=== PATIENT | male | born 1945 | race Caucasian/White ===

== ENCOUNTER → 2016-04-26 | Outpatient (CLI) | payer OTHER ==
[~2016-04-26] MED LIST: AMLO-114 PO; AMLO5TAB2 PO; ATOR-54 PO; CLON0.1T12 PO; LISI10TA PO; PRLSR20 PO; RXC5 PO; [UNRECOGNIZED DRUG - CODE] INJ
== END | disposition home or self-care (01) ==
LOC: C.LABMFLN 10:34
PROVIDERS: ATTEND Internal Medicine Endocrinology, Diabetes & Metabolism
DX: E31.21 Multiple endocrine neoplasia [MEN] type I (principal); Z86.39 Personal history of other endocrine, nutritional and metabolic disease; D35.00 Benign neoplasm of unspecified adrenal gland; E55.9 Vitamin D deficiency, unspecified

== ENCOUNTER → 2016-04-27 | Outpatient (CLI) | payer OTHER ==
[~2016-04-27] MED LIST changes: +GADAVIST IV PRN
--- NOTE | 2016-04-27 12:33 | DIAGNOSTIC IMAGING REPORT ---
MRI BRAIN COMBO FOR PITUITARY HISTORY: Multiple endocrine neoplasia type I. TECHNIQUE: Multiplanar multisequence MRI of the brain and pituitary fossa were performed both before and after the intravenous administration of contrast. COMPARISON STUDY: None. FINDINGS: The pituitary gland is normal in size and shape. There is normal posterior pituitary bright spot. There are no suprasellar masses. The pituitary stalk is normal in course and caliber. The pituitary gland enhances normally. Patchy periventricular white matter T2 hyperintensity is nonspecific but favor moderate microvascular ischemic change. There are mild atrophic changes within the brain. Hypoplastic distal vertebral arteries and basilar artery. However, the major vascular flow-voids at the skull base are well-maintained. Mild mucosal thickening within the paranasal sinuses. The mastoid air cells are clear. No abnormal enhancement. There is no mass, hematoma, midline shift, acute infarct. IMPRESSION: 1. No acute intracranial abnormality. 2. Normal pituitary gland. 3. Periventricular white matter T2 hyperintense foci are nonspecific but favor moderate microvascular ischemic change given the patient's age. Electronically signed by: Vasile Davila M.D. 04/27/2016 12:32 PM Dictated Date/Time: 04/27/2016 12:14 PM
== END | disposition home or self-care (01) ==
LOC: C.MRI 09:44
PROVIDERS: ATTEND Internal Medicine Endocrinology, Diabetes & Metabolism
DX: D35.00 Benign neoplasm of unspecified adrenal gland (principal); E31.21 Multiple endocrine neoplasia [MEN] type I; E55.9 Vitamin D deficiency, unspecified; Z86.39 Personal history of other endocrine, nutritional and metabolic disease

== ENCOUNTER 2016-05-08 05:58 | Inpatient (IN) | payer OTHER ==
[2016-04-18 11:50] VITALS: BMI 21.0
--- NOTE | 2016-04-18 12:29 | PAT Medication Instructions ---
Service Date Apr 18, 2016. Current Home Medication List Clonidine Hcl (Catapres), 1 TAB PO noon Lisinopril (Prinivil), 10 MG PO noon Octreotide Acetate (Sandostatin [place]), 0.5 ML INJ 3-4XWEEK Omeprazole (Prilosec), 40 MG PO NOON Medication Instructions For Your Scheduled Surgery - Check with surgeon/prescribing physician for instructions: Octreotide Acetate (Sandostatin [place]), 0.5 ML INJ 3-4XDAYS - Hold the following medications the morning of surgery: Lisinopril (Prinivil), 10 MG PO noon - Take the following medications the morning of surgery with a sip of water: Omeprazole (Prilosec), 40 MG PO NOON Clonidine Hcl (Catapres), 1 TAB PO noon If you have any questions please call us at [phone] (Criss Chavez PA-C) or [phone] or [phone]
[2016-04-18 13:29] LABS: BASO % 0.8 %; BASO ABS # 0.06 K/uL (0-0.2); COMPLETE YES; EOS % 2.2 %; HEMATOCRIT 35.2 % (42-52); IG% 0.1 %; LYMPH % 21.4 %; LYMPH ABS # 1.66 K/uL (1.2-3.4); MEAN CELL VOLUME 96.7 fL (80-100); MEAN CORPUSCULAR HEMOGLOBIN 33.2 pg (25-34); MEAN CORPUSCULAR HGB CONC 34.4 g/dl (32-36); MEAN PLATELET VOLUME 8.9 fL (7.4-10.4); MONO % 8.8 %; NEUT % 66.7 %; PLATELET COUNT 301 K/uL (130-400); RED BLOOD COUNT 3.64 M/uL (4.7-6.1); WHITE BLOOD COUNT 7.75 K/uL (4.8-10.8)
[2016-04-18 14:03] LABS: BUN/CREATININE RATIO 18.5 (10-20); CALCIUM 9.1 mg/dl (8.5-10.1); CREATININE 1.1 mg/dl (0.60-1.40)
--- NOTE | 2016-05-04 07:50 | HISTORY & PHYSICAL EXAMINATION ---
DATE OF ADMISSION: 05/08/2016 HISTORY OF PRESENT ILLNESS: The patient presents to the office with a complaint of left arm pain involving the deltoid and the biceps. He also reports inability to lift his left arm. He states this started about 4-5 months ago. He believes in October of 2015, he was working on a car overhead using a wrench and felt something pop and pull. He was evaluated by Dr. Og for his shoulder, ordered EMGs which revealed carpal tunnel syndrome only. He then was referred for MRI of his cervical spine and presented to our office. He has a difficult time dressing himself due to inability to lift his left arm. Denies numbness or tingling to the hand. Denies bowel or bladder dysfunction. Denies change in balance or gait. MEDICAL HISTORY: Significant for arthritis, BPH, prostate cancer 2016, hypertension, kidney disease, peripheral ulcer disease, renal disease. SURGICAL HISTORY: Significant for prostate. MEDICATIONS: Not listed. ALLERGIES: No known drug allergies. SOCIAL HISTORY: He is self-employed as a garden machinery mechanic. He is . Alcohol use is occasional. Tobacco use is 3 packs of cigarettes a day. Drug use is none. FAMILY HISTORY: Significant for arthritis, cancer, hypertension, and thyroid disease. REVIEW OF SYSTEMS: Significant for chills, fatigue, weakness, coughing, difficulty walking, nausea, urinary incontinence, neck and upper extremity pain. PHYSICAL EXAMINATION: GENERAL: He is 5 feet 3, 125 pounds. HEENT: Speech appropriate. CARDIOPULMONARY: No gross abnormalities. ABDOMEN: Soft, nontender. GENITOURINARY: Deferred. NEUROLOGIC: Cranial nerves II-XII grossly intact. MUSCULOSKELETAL: There is atrophy involving the left biceps and deltoid. The patient ambulates slowly around the room. He has great range of motion of the left shoulder. No impingement signs left shoulder. Strength is 1/5 left biceps and deltoid. He has weakness of the left hand but full strength in the right. Negative Cadena's. ASSESSMENT: Anterolisthesis of C4-C5, bilateral neural foraminal stenosis C4-C5, C5-C6, and C6-C7. There is also alteration of the contour of the cord at the C4-C5 level. Assessment is multilevel cervical spinal stenosis, left upper extremity weakness. PLAN: At this point in time, we have reviewed surgical intervention which would require anterior cervical discectomy and fusion of C6-C7 and C5 corpectomy. Risks, benefits, pros, cons, and alternatives were outlined in detail. The patient would like to proceed with the above-mentioned surgical planning.
[~2016-05-08] VITALS: Ht 160 cm; Wt 55.1 kg
[2016-05-08] VITALS (18 sets, daily range): BP systolic 144–172; BP diastolic 66–87; PULSE 69–79; TEMP 36.3–36.6; O2SAT 93–100; Ht 160 cm; Wt 55.1 kg
[~2016-05-08 05:58] MED LIST changes: -AMLO-114 PO; -GADAVIST IV PRN; -RXC5 PO
[2016-05-08] MEDS ORDERED: CEFAZOLIN 1000MG/55 ML D5W IV SCH (06:00)
[2016-05-08] MEDS ORDERED: LACTATED RINGER'S 1000ML 1,000 ML IV SCH (06:00)
[2016-05-08] MEDS ORDERED: MIDAZOLAM HCL 1 MG/ML 2ML VIAL ONE (06:36)
[2016-05-08] MEDS ORDERED: FENTANYL CITRATE INJ 50 MCG/1 ML 2 ML VIAL ONE ×5 (06:36→09:24)
[2016-05-08] MEDS ORDERED: AMLO-114 PO (07:00)
--- NOTE | 2016-05-08 07:29 | History & Physical Bridge Note ---
H&P Re-Evaluation Bridge Note: I have examined the patient, reviewed the History & Physical and in the interval since the performance of the History & Physical I have noted the following changes of clinical significance: No changes noted
[2016-05-08] MEDS ORDERED: HYDROmorphone INJ 2 MG/ML SYR/VIAL ONE (08:05)
[2016-05-08] MEDS ORDERED: PROPOFOL IV EMULSION 10 MG/ML 20 ML VIAL IV ONE (08:33)
[2016-05-08] MEDS ORDERED: DEXAMETHASONE SOD INJ 4 MG/ML VIAL ONE (08:33)
[2016-05-08] MEDS ORDERED: GLYCOPYRROLATE INJ 0.2 MG/ML VIAL ONE (08:33)
[2016-05-08] MEDS ORDERED: ESMOLOL HCL 10 MG/ML 10 ML VIAL ONE (08:33)
[2016-05-08] MEDS ORDERED: PHENYLEPHRINE 100MCG/ML 5ML SYR ONE (08:33)
[2016-05-08] MEDS ORDERED: ROCURONIUM BROMIDE 10 MG/ML 5 ML VIAL ONE (08:33)
[2016-05-08] MEDS ORDERED: ALBUTEROL HFA INHALER 8.5 GM INH ONE (08:33)
[2016-05-08] MEDS ORDERED: LIDOCAINE HCL 2% 2 ML VIAL (20MG/ML) ONE (08:33)
[2016-05-08] MEDS ORDERED: ONDANSETRON INJ 2 MG/ML 2 ML VIAL IV PRN ×2 (09:15→09:45)
[2016-05-08] MEDS ORDERED: HYDROmorphone INJ 2 MG/ML SYR/VIAL IV PRN (09:15)
[2016-05-08] MEDS ORDERED: LABETALOL HCL IV 5 MG/ML 20ML IV PRN (09:15)
[2016-05-08] MEDS ORDERED: ATROPINE SULFATE 0.1 MG/ML 5ML SYR IV PRN (09:15)
[2016-05-08] MEDS ORDERED: FLOSEAL HEMOSTATIC MATRIX 10ML TOP ONE (09:21)
[2016-05-08] MEDS ORDERED: BACITRACIN 50,000 UNITS IR ONE (09:28)
--- NOTE | 2016-05-08 09:35 | [facility] Post Operative Brief Note ---
Immediate Operative Summary Operative Date May 08, 2016. Pre-Operative Diagnosis Anterolisthesis of C4-C5, bilateral neural foraminal stenosis C4-C5, C5-C6, and C6-C7 Post-Operative Diagnosis Anterolisthesis of C4-C5, bilateral neural foraminal stenosis C4-C5, C5-C6, and C6-C7 Procedure(s) Performed C6-C7 Removal of Cervial Vertebral Body, Adjacent Discs, Placement of Prosthetic Spacer, Application of Allograft, Anterior Plate and Screw Fixation, C5 Corpectomy, Application of Twila Surgeon Dr. Richardson Washroom Cleaner Surgeon(s) CORAZON Peter Estimated Blood Loss 50 ml Findings stenosis Specimens none per surgeon
[2016-05-08] MEDS ORDERED: HYDROmorphone INJ 0.5 MG/0.5 ML SYR IV PRN (09:45)
[2016-05-08] MEDS ORDERED: NALOXONE HCL 0.4 MG/1 ML VIAL/CARP IV PRN (09:45)
[2016-05-08] MEDS ORDERED: DO NOT ADMINISTER PNEUMOCOCCAL VACCINE PRN ×2 (09:45)
[2016-05-08] MEDS ORDERED: NEOSTIGMINE METHYLSULFATE 1 MG/ML 10ML VIAL ONE (09:45)
[2016-05-08] MEDS ORDERED: OXYCODONE HCL IR 5 MG TAB (IMMEDIATE RELEASE) PO PRN (09:45)
[2016-05-08] MEDS ORDERED: DiphenhydrAMINE HCL 50 MG/ML VIAL IV PRN (09:45)
[2016-05-08] MEDS ORDERED: LORAZEPAM 0.5 MG TAB PO PRN (09:45)
[2016-05-08] MEDS ORDERED: DEXAMETHASONE INJ 8 MG in SYRINGE 0 ML IV PRN (09:45)
[2016-05-08] MEDS ORDERED: ACETAMINOPHEN IV 1,000 MG in EMPTY BAG 0 ML IV PRN (09:45)
[2016-05-08] MEDS ORDERED: MAGNESIUM HYDROXIDE SUSP 30 ML UDC PO PRN (09:45)
[2016-05-08] MEDS ORDERED: RACEPINEPHRINE 2.25% NEBU SOLN 0.5 ML VIAL INH PRN (09:45)
[2016-05-08] MEDS ORDERED: LORAZEPAM INJ 0.5 MG in SYRINGE 0.75 ML IV PRN (09:45)
[2016-05-08] MEDS ORDERED: DO NOT ADMINISTER FLU VACCINE PRN ×3 (09:45)
--- NOTE | 2016-05-08 09:50 | DIAGNOSTIC IMAGING REPORT ---
INTRAOPERATIVE CERVICAL SPINE 2 VIEWS CLINICAL HISTORY: C6-C7 ACDF / C5 CORPECTOMY COMPARISON STUDY: No previous studies for comparison. FINDINGS: 2 intraoperative fluoroscopic spot images are provided for interpretation. 14 seconds of fluoroscopic time was utilized. There are postsurgical changes of C5 and C6 corpectomy. There are postsurgical changes of a C7-T1 discectomy and interbody fusion. There is a anterior metallic plate extending from the C4-T1 level. IMPRESSION: Postsurgical changes as described above. Electronically signed by: Colin Curtis M.D. 05/08/2016 9:49 AM Dictated Date/Time: 05/08/2016 9:47 AM
[2016-05-08] MEDS ORDERED: HYDROmorphone INJ 1 MG/ML SYR ONE (09:51)
[2016-05-08] MEDS ORDERED: ALBUT/IPRATROP 3MG/0.5MG NEB 3 ML VIAL INH SCH (10:00)
--- NOTE | 2016-05-08 10:07 | OPERATIVE REPORT ---
DATE OF OPERATION: 05/08/2016 PREOPERATIVE DIAGNOSES: Cervical spondylosis, myeloradiculopathy. POSTOPERATIVE DIAGNOSES: Cervical spondylosis, myeloradiculopathy. PROCEDURE PERFORMED: 1. Anterior cervical corpectomy C5. 2. Anterior cervical diskectomy C6-C7. 3. Anterior cervical arthrodesis C4-C6 and C6-C7. 4. Placement of PEEK cage 27 mm in height at C4-C6 and 7 mm at C6-C7. 5. Placement of Mckenna plate and screws from C4-C7. 6. Placement of locally harvested morcellized autograft combined with Twila bone grafting in the interbody cages. SURGEON: Dr. Quirino Richardson. COMPUTER APPLICATIONS DEVELOPER: Due to the complex nature of the procedure, the entire surgery was performed with the assistant director of admissions of Aparna Conley PA-C. The front end assistant, under direct supervision, was involved in the actual performance of all aspects of the surgical procedure including hemostasis, tissue retraction and incision, instrument management, patient positioning, and wound closure. ANESTHESIA: General. DISPOSITION: The patient awakened and taken to PACU in stable condition. HISTORY OF PATIENT'S PROBLEMS: This is a 70-year-old male who presents with above-mentioned diagnosis. After failing an extensive course of nonoperative care, elected to undergo the above-mentioned procedure. Risks, benefits, pros, cons, and alternatives were outlined in detail preoperatively. DESCRIPTION OF PROCEDURE: The patient was met preoperatively, case discussed and all questions were addressed. At that point the patient was taken back to the operative suite and after undergoing successful general intubation by the department of anesthesia was placed in supine position on Aki table with head in Farr wet process assistant head miller. All bony prominences were well padded and the eyes were inspected to ensure there was no external pressure placed upon them. At this point the anterior cervical spine was prepped and draped in normal sterile fashion. With the assistance of fluoroscopy, we identified the C5 vertebral body and a longitudinal incision was created overlying this region. Sharp dissection with the assistance of bipolar cautery performed down to and exposing the anterior cervical spine from C4 to C7. A self-retaining retractor was placed. I then performed a complete diskectomy of C4-C5 out to the uncovertebral joints bilaterally followed by C5-C6. Humble distracting pins were then placed in C4 and C6 to distract across the C5 vertebral body. A complete corpectomy was then performed including removal of all posterior annular fibers, longitudinal ligament and bilateral foraminotomies for complete decompression. Endplates were then burred to subcortical bleeding bone and a 27 mm PEEK cage filled with Twila bone grafting of locally harvested morselized autograft tapped in position. Distractor apparatus was removed and we proceeded to C6-C7 and again a complete diskectomy was performed out to the uncovertebral joints bilaterally. We did remove all posterior annular fibers, longitudinal ligament and bilateral foraminotomies performed and endplates were burred to subcortical bleeding bone and a 7 mm PEEK cage filled with locally harvested morcellized autograft and Twila bone grafting tapped into position. Distracting apparatus was removed. All anterior osteophytes burred to a smooth cortical surface and a Mckenna plate and screws applied with the assistance of fluoroscopy. Incision was then copiously irrigated, explored to ensure there was no damage to surrounding structures or remaining bleeding and a 10 round NAHEED drain inserted. It was then closed with 2-0 Vicryl in the fascia, 4-0 Monocryl for final skin closure. Steri-Strips and sterile dressing placed. The patient was awakened and taken to PACU in stable condition. I attest to the content of the Intraoperative Record and any orders documented therein. Any exceptio ns are noted below.
[2016-05-08] MEDS ORDERED: HYDROmorphone INJ 1 MG/ML SYR IV PRN (10:15)
--- NOTE | 2016-05-08 11:12 | Anesthesiology Progress Note ---
Anesthesia Post Op Note Date & Time May 08, 2016 at 11:12 Vital Signs Pain Intensity: 0 Vital Signs Past 12 Hours Date Time Temp Pulse Resp B/P Pulse Ox O2 Delivery O2 Flow Rate FiO2 05/08/16 11:00 70 16 156/77 93 Nasal Cannula 4 05/08/16 10:50 36.5 75 18 161/76 96 Nasal Cannula 4 05/08/16 10:40 64 15 147/66 93 Nasal Cannula 4 05/08/16 10:30 70 16 151/66 92 Nasal Cannula 3 05/08/16 10:20 76 18 155/68 93 Nasal Cannula 3 05/08/16 10:10 78 20 158/67 96 Nasal Cannula 3 05/08/16 10:00 89 16 161/74 100 Mask 10 05/08/16 09:54 79 18 100 Mask 10.0 05/08/16 09:50 76 12 157/70 100 Mask 10 05/08/16 09:43 36.3 97 16 162/81 99 Mask 10 05/08/16 06:26 36.5 77 18 158/73 98 Room Air Notes Mental Status: alert / awake / arousable, participated in evaluation Pt Amnestic to Procedure: Yes Nausea / Vomiting: adequately controlled Pain: adequately controlled Airway Patency, RR, SpO2: stable & adequate BP & HR: stable & adequate Hydration State: stable & adequate Anesthetic Complications: no major complications apparent
--- NOTE | 2016-05-08 12:15 | Medical Consult ---
Consultation Date of Consultation: May 08, 2016 ~ 11:30 . Attending Physician: Quirino Richardson D.O. . Reason for Consultation: medical management . History of Present Illness 70 YO male followed by Dr[address] Velez in [place]. History of hypertension, COPD, MEN 1, and other problems noted below. Cervical decompression / fusion performed today by Dr. Richardson under [place]. Doing well postoperatively except for some irritation of his pharynx. No chest pain. No cough or dyspnea. No nausea or vomiting. Salmon cath removed. Postop pain well-controlled. . 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 Family History FATHER Cancer MOTHER Cancer BROTHER Payam-Brown syndrome Social History Smoking Status: Current Every Day Smoker Alcohol Use: 4 beers / day Allergies Coded Allergies: Latanoprost (Verified Allergy, Unknown, BURNING EYES WITH DROPS, 04/18/16) Home Medications Reported Home Medications Medications Dose Route/Sig Max Daily Dose Days Date Category Norvasc (Amlodipine Besylate) 10 Mg Tab 10 Mg PO DAILY 05/08/16 Reported Lipitor (Atorvastatin) 20 Mg Tab 1 Tab PO NOON 04/26/16 Reported Sandostatin [place] (Octreotide Acetate) 10 Mg Kit 0.5 Ml INJ 3-4XWEEK 04/18/16 Reported Prilosec (Omeprazole) 20 Mg Capcr 40 Mg PO NOON 04/18/16 Reported Catapres (Clonidine Hcl) 0.1 Mg Tab 1 Tab PO TID 90 04/18/16 Reported Prinivil (Lisinopril) 10 Mg Tab 10 Mg PO NOON 04/18/16 Reported Current Inpatient Medications Current Inpatient Medications Medications (Trade) Dose Ordered Sig/Delmy Route Start Time Stop Time Status Last Admin Dose Admin Cefazolin Sodium 55 ml @ 100 mls/hr PREOP IV 05/08/16 06:00 05/08/16 18:00 05/08/16 07:36 100 MLS/HR Lactated Ringer's (Lr 1000ml) 1,000 ml @ 15 mls/hr Q24H IV 05/08/16 06:00 05/09/16 05:59 05/08/16 06:45 15 MLS/HR Ondansetron HCl (Zofran Inj) 4 mg ONE PRN IV 05/08/16 09:15 05/08/16 14:15 Atropine Sulfate (Atropine Sulfate 0.1MG/Ml Inj) 0.5 mg Q1M PRN IV 05/08/16 09:15 05/08/16 14:15 Hydromorphone HCl (Dilaudid Inj) 0.25 mg Q5M PRN IV 05/08/16 09:15 05/08/16 14:15 Labetalol HCl (Normodyne IV) 5 mg Q5M PRN IV 05/08/16 09:15 05/08/16 14:15 Racepinephrine 0.5 ml 0.5 ml ONE PRN INH 05/08/16 09:45 05/15/16 09:44 Acetaminophen/ Empty Bag (Ofirmev Iv/ Empty Iv Bag 100ml) 100 ml @ 400 mls/hr Q8H PRN IV 05/08/16 09:45 06/07/16 09:44 Hydromorphone HCl (Dilaudid Inj) 0.5 mg Q3H PRN IV 05/08/16 09:45 05/22/16 09:44 Magnesium Hydroxide (Milk Of Magnesia Susp) 30 ml DAILY PRN PO 05/08/16 09:45 06/07/16 09:44 Docusate Sodium (coLACE CAP) 100 mg BID PO 05/08/16 21:00 06/07/16 20:59 UNV Ondansetron HCl (Zofran Inj) 4 mg Q6H PRN IV 05/08/16 09:45 06/07/16 09:44 Scopolamine 1.5 mg 1.5 mg Q72H TD 05/08/16 09:45 06/07/16 09:44 UNV Cefazolin Sodium/ Dextrose (Ancef Iv/D5 50ml) 55 ml @ 100 mls/hr Q8H IV 05/08/16 09:45 05/09/16 02:17 UNV Lorazepam 0.5 mg 0.5 mg Q8H PRN PO 05/08/16 09:45 06/07/16 09:44 Lorazepam/Syringe (Ativan Inj/ Syringe) 1 ml @ 1 mls/min Q8H PRN IV 05/08/16 09:45 06/07/16 09:44 Diphenhydramine HCl 25 mg 25 mg Q6H PRN IV 05/08/16 09:45 06/07/16 09:44 Dexamethasone Sodium Phosphate/ Syringe (Decadron Inj/ Syringe) 1.5 ml @ 1 mls/min Q8H IV 05/08/16 09:45 05/09/16 01:47 UNV Pneumococcal Polysaccharide Vaccine 1 ea PRN PRN N/A 05/08/16 09:45 06/07/16 09:44 Influenza Virus Vacc Triv Types A&B 1 ea 1 ea PRN PRN N/A 05/08/16 09:45 06/07/16 09:44 Sodium Chloride (Nss 1000ml) 1,000 ml @ 80 mls/hr [id number] IV 05/08/16 09:35 05/09/16 09:34 UNV Oxycodone HCl (Roxicodone Immediate Rel Tab) 5mg for pain scale 4-6 1... Q4H PRN PO 05/08/16 09:45 05/22/16 09:44 Polyethylene (Miralax Powder Packet) 17 gm DAILY PO 05/11/16 09:00 06/10/16 08:59 UNV Bisacodyl (Dulcolax Tab) 5 mg DAILY PRN PO 05/10/16 06:00 06/09/16 05:59 Bisacodyl 10 mg 10 mg DAILY PRN SC 05/10/16 06:00 06/09/16 05:59 Dexamethasone Sodium Phosphate/ Syringe (Decadron Inj/ Syringe) 2 ml @ 1 mls/min ONE PRN IV 05/08/16 09:45 05/15/16 09:44 Naloxone HCl (Narcan Inj) 0.1 mg Q5M PRN IV 05/08/16 09:45 06/07/16 09:44 Miscellaneous (Remove Transderm-Scop Patch) 1 ea Q72H N/A 05/11/16 09:45 06/10/16 09:44 UNV Miscellaneous Information (Check Scopolamine Patch Placement) 1 ea QS N/A 05/08/16 16:00 06/07/16 15:59 Amlodipine Besylate (Norvasc Tab) 10 mg DAILY PO 05/09/16 09:00 06/08/16 08:59 UNV Atorvastatin Calcium (Lipitor Tab) 20 mg DAILY PO 05/09/16 09:00 06/08/16 08:59 UNV Clonidine HCl (Catapres Tab) 0.1 mg DAILY PO 05/09/16 09:00 06/08/16 08:59 UNV Lisinopril (Zestril Tab) 10 mg DAILY PO 05/09/16 09:00 06/08/16 08:59 UNV Pantoprazole Sodium (Protonix Tab) 40 mg DAILY@1200 PO 05/09/16 12:00 06/08/16 11:59 UNV Albuterol/ Ipratropium (Duoneb) 3 ml 1000 INH 05/08/16 10:00 05/08/16 15:00 Hydromorphone HCl (Dilaudid Inj) 1 mg Q3H PRN IV 05/08/16 10:15 05/22/16 10:14 Review of Systems ENT: + hearing loss Respiratory: No cough, No shortness of breath Cardiovascular: No chest pain Abdomen: No GI bleeding, No nausea, No vomiting Genitourinary - Male: No dysuria, No hematuria Neurologic: + problem reported (right foot drop) Hematologic / Lymphatic: + abnormal bleeding/bruising (bruises easily) Physical Exam Date Time Temp Pulse Resp B/P Pulse Ox O2 Delivery O2 Flow Rate FiO2 05/08/16 11:49 79 16 96 Nasal Cannula 4.0 05/08/16 11:00 70 16 156/77 93 Nasal Cannula 4 05/08/16 10:50 36.5 75 18 161/76 96 Nasal Cannula 4 05/08/16 10:40 64 15 147/66 93 Nasal Cannula 4 05/08/16 10:30 70 16 151/66 92 Nasal Cannula 3 05/08/16 10:20 76 18 155/68 93 Nasal Cannula 3 05/08/16 10:10 78 20 158/67 96 Nasal Cannula 3 05/08/16 10:00 89 16 161/74 100 Mask 10 05/08/16 09:54 79 18 100 Mask 10.0 05/08/16 09:50 76 12 157/70 100 Mask 10 05/08/16 09:43 36.3 97 16 162/81 99 Mask 10 05/08/16 06:26 36.5 77 18 158/73 98 Room Air General Appearance: WD/WN, no apparent distress Head: normocephalic, atraumatic Eyes: normal inspection, PERRL, EOMI, sclerae normal ENT: hearing grossly normal, pharynx normal, + pertinent finding (no upper teeth) Neck: + pertinent finding (cervical collar applied) Respiratory/Chest: no respiratory distress, no accessory muscle use, + wheezing (diffuse, mild) Cardiovascular: regular rate, rhythm, no edema, no gallop, no JVD, no murmur Abdomen/GI: normal bowel sounds, non tender, soft, no organomegaly, no pulsatile mass Extremities/Musculoskelatal: no calf tenderness, no pedal edema, + pertinent finding (TEDS and SCD'a applied) Neurologic/Psych: tv news director II-XII nml as tested (PERRL, EOMI), alert, normal mood/ affect, oriented x 3, + pertinent finding (right foot drop (old per patient and spouse)) Skin: normal color, warm/dry, no rash Laboratory Results Item Value Date Time Hemoglobin 12.1 g/dL L 04/18/16 1243 White Blood Count 7.75 K/uL 04/18/16 1243 Platelet Count 301 K/uL 04/18/16 1243 Sodium Level 139 mmol/L 04/18/16 1243 Potassium Level 4.0 mmol/L 04/18/16 1243 Chloride Level 106 mmol/L 04/18/16 1243 Carbon Dioxide Level 23 mmol/L 04/18/16 1243 Blood Urea Nitrogen 20 mg/dl H 04/18/16 1243 Creatinine 1.10 mg/dl 04/18/16 1243 Random Glucose 62 mg/dl L 04/18/16 1243 Calcium Level 9.1 mg/dl 04/18/16 1243 Preop EKG performed on 04/18/16 reviewed and demonstrated NSR at 80 / minute, LVH , nonspecific ST, T-wave abnormalities. . Assessment & Plan S/P CERVICAL DECOMPRESSION / FUSION POD # 0. Doing well postoperatively. HYPERTENSION History of hypertensin, managed with clonidine, lisinopril, amlodipine. Took clonidine preoperatively. BP 156/77 postoperatively. Continue clonidine, lisinopril, and amlodipine with hold parameters. Check PRP on POD # 1- hold lisinopril if creatinine rises significantly. COPD Smoker, PFT's 2016 demonstrated moderate obstructive lung disease. Nebs. Monitor pulse oximetry. Supplemental O2 as needed. MEN 1 / STATUS POST PARATHYROIDECTOMY Preop serum calcium normal. PROSTATE CARCINOMA History of prostate Ca, s/p cryoablation of prostate and orchiectomy. Patient denies urinary symptoms. Monitor for urinary retention postoperatively. SMOKING Smokes 2 PPD. Nicotine patch offered, patient declined. ALCOHOL CONSUMPTION Drinks 4 beers / day. Thiamine postop. Will not prophylax for alcohol withdrawal due to anticipated short hospital stay. Monitor for signs / symptoms of alcohol withdrawal. VTE PROPHYLAXIS Per Ortho protocol. Thank you for this consultation. We will follow the patient with you during their hospital stay. Dr. Hernandez will be rounding starting Tuesday 05/09. You can reach a member of the [facility] Hospitalist Team 02/10 via pager @ [phone]. You can reach me via cell @ [phone]. .
[2016-05-08] MEDS: SODIUM CHLORIDE 0.9% 1000ML 1,000 ML IV SCH ×2 (12:24→22:03)
[2016-05-08] MEDS ORDERED: SCOPOLAMINE 1.5 MG TDSY TD SCH (12:30)
[2016-05-08] MEDS ORDERED: THIAMINE HCL 100 MG TAB PO ONE (13:00)
[2016-05-08] MEDS: DEXAMETHASONE INJ 6 MG in SYRINGE 0 ML IV SCH ×2 (14:19→22:02)
[2016-05-08] MEDS: CLONIDINE HCL 0.1 MG TAB PO SCH ×2 (14:20→20:24)
[2016-05-08] MEDS: CEFAZOLIN IV 1,000 MG in DEXTROSE 5% 50ML 50 ML IV SCH ×2 (14:41→22:37)
[2016-05-08] MEDS: LEVALBUTEROL 0.63MG/3 ML NEB INH SCH ×2 (15:52→19:57)
[2016-05-08] MEDS: CHECK SCOPOLAMINE PATCH PLACEMENT SCH (16:00)
[2016-05-08] MEDS: DOCUSATE SODIUM 100 MG CAP PO SCH (20:24)
[2016-05-09] VITALS (13 sets, daily range): BP systolic 136–180; BP diastolic 70–83; PULSE 65–92; TEMP 36.4–36.7; O2SAT 94–98
[2016-05-09] MEDS ORDERED: HydrALAZINE HCL 20 MG/ML VIAL ONE (03:28)
[2016-05-09] MEDS ORDERED: HydrALAZINE HCL 20 MG/ML VIAL IV. SCH (03:30)
[2016-05-09] MEDS ORDERED: AMLODIPINE BESYLATE 5 MG TAB PO SCH ×2 (06:00→09:00)
[2016-05-09] MEDS ORDERED: LISINOPRIL 10 MG TAB PO SCH ×2 (06:00→09:00)
[2016-05-09] MEDS: CEFAZOLIN IV 1,000 MG in DEXTROSE 5% 50ML 50 ML IV SCH (06:23)
[2016-05-09] MEDS: DEXAMETHASONE INJ 6 MG in SYRINGE 0 ML IV SCH (06:23)
[2016-05-09 07:12] LABS: BUN/CREATININE RATIO 12.4 (10-20); CALCIUM 8.9 mg/dl (8.5-10.1); CREATININE 0.89 mg/dl (0.60-1.40); POTASSIUM 3.6 mmol/L (3.5-5.1)
[2016-05-09] MEDS: LEVALBUTEROL 0.63MG/3 ML NEB INH SCH (07:28)
[2016-05-09] MEDS ORDERED: RXC5 PO (07:58)
--- NOTE | 2016-05-09 07:59 | Discharge Instructions ---
Discharge Instructions Admission Reason for Admission: Cervical Spinal Stenosis Discharge Discharge Diagnosis / Problem: stenosis Discharge Goals Goal(s): Improve function Activity Recommendations Activity Limitations: per Instructions/Follow-up section . Instructions / Follow-Up Instructions / Follow-Up ACTIVITY RECOMMENDATIONS: SELF CARE INSTRUCTIONS AFTER CERVICAL FUSIONS 1. No smoking. Smoking drastically decreases the chance of a solid fusion. 2. No bending, lifting more than 5 pounds, or twisting (roll like a log when turning in bed). 3. You may shower 3 days after surgery. Thoroughly dry wound. Do not soak in the tub. 4. Cervical collar: Must be worn at all times including sleeping. You may remove the brace only to bath, eat and if you are sitting in a recliner. 5. Please walk as much as you can for exercise. Gradually increase the distance that you walk as your endurance increases. SPECIAL CARE INSTRUCTIONS: VERY IMPORTANT TO READ AND REVIEW A. Do not take any anti-inflammatory medications (i.e. Indocin, Advil, Aspirin, Naprosyn, Aleve, Motrin, etc.) as these may inhibit the chance of a solid fusion. Tylenol is okay to take. B. Your surgical incision has been closed with a cosmetic suture under the skin that will dissolve in about 6 weeks. In 14 days, you can use a pair of clean scissors and cut the suture that is left outside of the skin at the ends of your incision. C. Complications are uncommon, but please contact us if you have any signs or symptoms of: 1. wound infection (fever higher than 102.5 degrees F, redness, separation of wound, drainage, or increasing pain from the incision) 2. blood clots in legs (pain, swelling, redness and warmth in legs) 3. urinary tract infection (fever higher than 102.5 degrees, burning upon urination or increased frequency of urination) 4. nerve problems (inability to walk on your toes or heels, numbness, loss of bowel or bladder control) 5. any other symptoms that concern you. D. Please call the office at if you have any concerns or questions about your operation or recovery. MANAGING PAIN AFTER SPINAL SURGERY 1. Narcotic medication is intended for short-term use and will be provided for surgical pain. Surgical pain usually lasts for a period of 4-6 weeks. Narcotic medication includes Percocet, Vicodin, Darvocet, Tylenol #3 or Lortab. 2. Longer-term pain is more appropriately treated with non-narcotic medication such as Tylenol ES. 3. Muscle spasm is not appropriately treated with narcotics. Muscle relaxers such as Soma, Flexeril or Skelaxin can be used along with Tylenol ES. 4. Remember that we all live with some "aches and pains". This is not unusual or uncommon after an injury or as we get older. 5. We will provide appropriate medication within the normal guidelines of their prescribed use. We will also be very cautious and aware of potential abuse and extended duration of patients' medication needs. 6. Please allow 2-3 days to process refills. Prescriptions will not be mailed but must be picked up at the office. FOLLOW UP VISIT: Keep your scheduled follow-up appointment. Any questions, please call the office at . Current Hospital Diet Patient's current hospital diet: Clear Liquid Diet Discharge Diet Recommended Diet: Regular Diet Procedures Procedures Performed: C6-C7 Removal of Cervial Vertebral Body, Adjacent Discs, Placement of Prosthetic Spacer, Application of Allograft, Anterior Plate and Screw Fixation, C5 Corpectomy, Application of Twila Pending Studies Studies pending at discharge: no Medical Emergencies . Who to Call and When: Medical Emergencies: If at any time you feel your situation is an emergency, please call 911 immediately. . Non-Emergent Contact Non-Emergency issues call your: Primary Care Provider . "Provider Documentation" section prepared by Quirino Richardson. VTE Core Measure Inpt VTE Proph given/why not?: Luciano Espana, SCD's
--- NOTE | 2016-05-09 08:06 | Anesthesiology Progress Note ---
Anesthesia Post Op Note Date & Time May 09, 2016 at 08:06 Vital Signs Pain Intensity: 0.0 Vital Signs Past 12 Hours Date Time Temp Pulse Resp B/P Pulse Ox O2 Delivery O2 Flow Rate FiO2 05/09/16 07:28 83 16 94 Room Air 05/09/16 07:28 83 16 94 Room Air 05/09/16 07:06 88 180/83 05/09/16 06:10 36.7 74 16 178/73 95 Room Air 05/09/16 04:10 36.7 67 14 162/72 96 Nasal Cannula 2.0 Humidified Oxygen 05/09/16 03:52 69 18 96 Room Air 05/09/16 03:32 84 175/83 05/09/16 02:10 36.5 69 16 176/81 98 Nasal Cannula 2.0 Humidified Oxygen 05/09/16 00:10 Nasal Cannula 2.0 Humidified Oxygen 05/09/16 00:10 36.4 65 12 170/80 96 Nasal Cannula Humidified Oxygen 05/08/16 23:32 71 16 97 Nasal Cannula 4.0 05/08/16 22:09 36.4 72 18 162/74 100 Nasal Cannula 2.0 Humidified Oxygen 05/08/16 20:10 36.4 76 16 168/82 100 Nasal Cannula 4.0 Humidified Oxygen Notes Mental Status: alert / awake / arousable, participated in evaluation Pt Amnestic to Procedure: Yes Nausea / Vomiting: adequately controlled Pain: adequately controlled Airway Patency, RR, SpO2: stable & adequate BP & HR: stable & adequate Hydration State: stable & adequate Anesthetic Complications: no major complications apparent
[2016-05-09] MEDS: CHECK SCOPOLAMINE PATCH PLACEMENT SCH ×2 (08:17)
[2016-05-09] MEDS: DOCUSATE SODIUM 100 MG CAP PO SCH (08:45)
[2016-05-09] MEDS ORDERED: ATORVASTATIN 20 MG TAB PO SCH (09:00)
[2016-05-09] MEDS ORDERED: THIAMINE HCL 100 MG TAB PO SCH (09:00)
--- NOTE | 2016-05-09 09:16 | DISCHARGE SUMMARY ---
DATE OF DISCHARGE: 05/09/2016. PRINCIPAL DIAGNOSIS: Cervical spondylosis, myeloradiculopathy. HOSPITAL COURSE: On 05/08/2016 the patient underwent anterior cervical corpectomy and discectomy and fusion, tolerated this well and taken to the orthopedic floor postoperatively. Postop day #1, he was swallowing well. No hoarseness. Arm symptoms improved. NAHEED drain decreased appropriately. Subsequently discharged home. Discharge orders and instructions can be found on the chart for further review.
[2016-05-09] MEDS ORDERED: CLONIDINE HCL 0.1 MG TAB PO SCH ×2 (12:00→14:00)
[2016-05-09] MEDS ORDERED: PANTOprazole SOD 40 MG TAB PO SCH (12:00)
[2016-05-10] MEDS ORDERED: BISACODYL 5 MG TABEC PO PRN (06:00)
[2016-05-10] MEDS ORDERED: BISACODYL 10 MG SUPP PR PRN (06:00)
[2016-05-10] MEDS ORDERED: POLYETHYLENE (MIRALAX) 17 GM PACK PO SCH (09:00)
== END 2016-05-09 10:24 | disposition home or self-care (01) | DRG 473 ==
LOC: ENRESERVTM → ENRESERVDT → C.ACU 05:58 → C.3E 07:30
PROVIDERS: ADMIT Orthopaedic Surgery Orthopaedic Surgery of the Spine; ATTEND Orthopaedic Surgery Orthopaedic Surgery of the Spine
PROC: 0RG10K0 Fusion of Cervical Vertebral Joint with Nonautologous Tissue Substitute, Anterior Approach, Anterior Column, Open Approach (ICD-10-PCS; 2016-05-08)
PROC: 0RG20A0 Fusion of 2 or more Cervical Vertebral Joints with Interbody Fusion Device, Anterior Approach, Anterior Column, Open Approach (ICD-10-PCS; principal; 2016-05-08 07:45)
PROC: 0RT30ZZ Resection of Cervical Vertebral Disc, Open Approach (ICD-10-PCS; 2016-05-08 07:45)
DX: M47.12 Other spondylosis with myelopathy, cervical region (principal); N40.0 Benign prostatic hyperplasia without lower urinary tract symptoms; M43.12 Spondylolisthesis, cervical region; I10 Essential (primary) hypertension; M48.02 Spinal stenosis, cervical region; F17.210 Nicotine dependence, cigarettes, uncomplicated; J44.9 Chronic obstructive pulmonary disease, unspecified; Z87.11 Personal history of peptic ulcer disease; Z85.46 Personal history of malignant neoplasm of prostate; M19.90 Unspecified osteoarthritis, unspecified site; Z82.49 Family history of ischemic heart disease and other diseases of the circulatory system; Z80.9 Family history of malignant neoplasm, unspecified

== ENCOUNTER → 2016-05-22 | Outpatient (CLI) | payer OTHER ==
[~2016-05-22] MED LIST changes: +AMLO-114 PO; -AMLO5TAB2 PO; +RXC5 PO
== END | disposition home or self-care (01) ==
LOC: C.LABMFLN 07:48
PROVIDERS: ATTEND Internal Medicine Endocrinology, Diabetes & Metabolism
DX: E31.21 Multiple endocrine neoplasia [MEN] type I (principal); D35.00 Benign neoplasm of unspecified adrenal gland; E34.2 Ectopic hormone secretion, not elsewhere classified

== ENCOUNTER → 2016-06-01 | Outpatient (CLI) | payer OTHER | END | disposition home or self-care (01) | LOC: C.LABMFLN 08:30 | PROVIDERS: ATTEND Internal Medicine Endocrinology, Diabetes & Metabolism | DX: E31.21 Multiple endocrine neoplasia [MEN] type I (principal); D35.00 Benign neoplasm of unspecified adrenal gland ==

== ENCOUNTER → 2016-06-05 | Outpatient (CLI) | payer OTHER | END | disposition home or self-care (01) | LOC: C.LABMFLN 10:30 | PROVIDERS: ATTEND Internal Medicine Endocrinology, Diabetes & Metabolism | DX: E31.21 Multiple endocrine neoplasia [MEN] type I (principal); D35.00 Benign neoplasm of unspecified adrenal gland ==